=== PATIENT | male | born 1965 | race Asian ===

== ENCOUNTER 2017-08-24 20:57 | Inpatient (IN) | payer BC ==
[~2017-08-24] VITALS: Ht 170.2 cm; Wt 86.7 kg
--- NOTE | 2017-08-24 21:01 | NUR ---
EKG IN PROG
--- NOTE | 2017-08-24 21:13 | NUR ---
EKG SHOWN TO OBI VARGAS.
--- NOTE | 2017-08-24 21:22 | NUR ---
DR TEJEDA AT BEDSIDE FOR MSE. PT C/C DIZZINESS AFTER HAVING DINNER WITH FAMILY. PT REPORTS FEELING SUDDEN BLOOD DE LUNA TO HEAD. PT STATES HX OF DIZZINESS BUT TODAYS DIZZINESS FELT MORE SEVERE. PT DENIES ALOC, FALL OR CHANGES IN VISION. PT ALERT AND AWAKE, BREATHING EVEN AND UNLABORED. SIDE RAILS UP FOR SAFETY PRECAUTIONS. PT AND SON AT BEDSIDE. NO SX OF DISTRESS NOTED AT THIS TIME. CALL LIGHT PLACED WITHIN REACH. P.S. PT ON FULL CM FOR SAFETY PRECAUTIONS
--- NOTE | 2017-08-24 21:48 | NUR ---
PT MEDICATED PER DR TEJEDA ORDERS. PT EDUCATED ON MEDS AND DENIES ALLERGIES TO MED. PT IV SITE PATENT WITH NO COMPLICATIONS NOTED. PT ALERT AND AWAKE, NO DIFFICULTY SWALLOWING PO MED. AT BEDSIDE. NO SX OF DISTRESS NOTED.
--- NOTE | 2017-08-24 21:50 | NUR ---
XRAY AT BEDSIDE
[2017-08-24 22:22] LABS: BASOPHIL % 0.5 % (0-2); PLATELET COUNT 291 x10^3mcL (130-400); RED CELL DISTRIBUTION WIDTH 13.4 % (11.5-14.5)
[2017-08-24 22:27] LABS: CALCIUM 8.4 mg/dL (8.5-10.1); CARBON DIOXIDE 24.6 mmol/L (21-32); CHLORIDE SERUM 109 mmol/L (98-107); CREATININE SERUM 1.1 mg/dL (0.7-1.3); GFR1 > 60 mL/min; GLUCOSE SERUM 144 mg/dL (74-106); POTASSIUM SERUM 3.8 mmol/L (3.5-5.1); SODIUM SERUM 143 mmol/L (136-145)
[2017-08-24 22:30] LABS: ALKALINE PHOSPHATASE 65 U/L (46-116); ALT/SGPT 22 U/L (16-63); AST/SGOT 16 U/L (15-37); BILIRUBIN TOTAL 0.3 mg/dL (0.20-1.00); MAGNESIUM 1.8 mg/dL (1.8-2.4); TOTAL PROTEIN, SERUM 6.6 g/dL (6.4-8.2)
[2017-08-24 22:33] LABS: ALBUMIN 3.2 g/dL (3.4-5.0)
[2017-08-24 22:45] LABS: T3 TOTAL 1.03 ng/mL
--- NOTE | 2017-08-24 22:50 | NUR ---
PT MEDICATED PER DR TEJEDA ORDERS. PT EDUCATED ON MED AND VERBALIZED UNDERSTANDING OF TEACHING. PT IV SITE PATENT, NO SX OF COMPLICATIONS NOTED. PT AAOX4, TALKING TO AT BEDSIDE. PT DENIES PAIN AT THIS TIME.
[2017-08-24 22:52] LABS: FREE T4 0.93 ng/dL (0.76-1.46); FREE THYROXINE INDEX 1.7 ug/dL (1.4-4.5); T4(THYROXINE) 4.4 ug/dL (4.7-13.3)
[2017-08-24 23:09] LABS: AMPHETAMINE QUAL UR NONE DETECTED (NEG <=1000)
--- NOTE | 2017-08-24 23:31 | NUR ---
LUNCH BREAK REPORT GIVEN TO GIDEON BERMAN TO COVER CARE.
[2017-08-24] MEDS ORDERED: MULTIVITAMIN1 SGL PO (23:53)
--- NOTE | 2017-08-25 00:11 | NUR ---
GIDEON HOLLY CALLED AT EXT [id number], NO ANSWER WILL CALL BACK AT A LATER TIME.
[2017-08-25 00:25] LABS: CHOLESTEROL/HDL RATIO 6.7
--- NOTE | 2017-08-25 00:27 | NUR ---
ADMISSION REPORT GIVEN TO GIDEON HOLLY EXT [phone] TO CONTINUE CARE.
[2017-08-25 00:56] VITALS: BP 98/61
--- NOTE | 2017-08-25 01:00 | NUR ---
RECEIVED PT FROM ED VIA SUMAN. ORIENTED PT TO ROOM AND SURROUNDINGS. IV NOTED TO LAC PATENT AND INTACT. TELE 38 PLACED ON PT READING AFIB. INSTRUCTED PT ON THE USE OF CALL LIGHT FOR ASSISTANCE. ENDORSED PT TO PRIMARY NURSE ELAYNE
--- NOTE | 2017-08-25 01:19 | NUR ---
RECEIVED PT IN BED, NEW ADM. FROM ER. RESTING QUIETLY. ALERT AND ORIENTED. DENIES HEADACHE/DIZZINESS. DENIES NUMBNESS OR ANY TINGLING SENSATION . AFEBRILE AND VITAL SIGNS STABLE. AFIB ON THE MONITOR, HR 87, DENIES CHEST PAIN OR ANY DISCOMFORT AT THIS TIME. STARTED ON IVF, NS AT 100ML/HR, INFUSING VIA LAC , SITE CLEAR. ABD. SOFT, NON DISTENDED, BS ACTIVE, NO N/V NOTED. SKIN WARM AND DRY TO TOUCH, INTACT AND NO EDEMA NOTED. AMBULATORY. KEPT COMFORTABLE. CALL LIGHT WITHIN REACH. WILL CONTINUE TO MONITOR.
[2017-08-25 04:07] LABS: microscopic required? NO
--- NOTE | 2017-08-25 04:23 | NUR ---
SLEEPING, EASILY AROUSABLE. NO DISTRESS NOTED. WILL CONTINUE TO MINITOR.
[2017-08-25 04:28] LABS: urine erythrocyte NEGATIVE (NEGATIVE)
[2017-08-25 06:33] VITALS: BP 97/60
[2017-08-25 06:37] LABS: BASOPHIL % 0.4 % (0-2); PLATELET COUNT 271 x10^3mcL (130-400); RED CELL DISTRIBUTION WIDTH 13.4 % (11.5-14.5)
--- NOTE | 2017-08-25 06:38 | NUR ---
NO COMPLAINTS NOTED. DENIES CHEST PAIN OR ANY DISCOMFORT. AFEBRILE AND VITAL SIGNS STABLE. RESP. EVEN AND UNLABORED. NO DISTRESS NOTED. KEPT COMFORTABLE. IVF INTACT AND INFUSING WELL, SITE CLEAR. VOIDING FREELY. WILL ENDORSE TO INCOMING NURSE.
[2017-08-25 06:53] LABS: CALCIUM 8.1 mg/dL (8.5-10.1); CARBON DIOXIDE 26.3 mmol/L (21-32); CHLORIDE SERUM 110 mmol/L (98-107); CREATININE SERUM 1.1 mg/dL (0.7-1.3); GFR1 > 60 mL/min; GLUCOSE SERUM 96 mg/dL (74-106); POTASSIUM SERUM 3.9 mmol/L (3.5-5.1); SODIUM SERUM 145 mmol/L (136-145)
--- NOTE | 2017-08-25 07:50 | NUR ---
AAO TIMES 4. TELE # 38 A FIB 110. LUNGS CTA. NO SOB. O2 SAT ON RA 99%. BS'S ACTIVE TIMES 4. CAT STRONG. NO C/O PAIN. NO SOB. O2 SAT ON RA 99%. PERIPHERAL PULSES PALPABLE. NO EDEMA. SKIN CDI. COOPERATIVE. IV SITE LAC PATENT, CDI.
--- NOTE | 2017-08-25 08:40 | NUR ---
ROUNDS WITH D[place] WITH DR [place] [id number]. THE PLAN FOR TODAY IS TO GET A CARDIAC CONSULTATION.
[2017-08-25 12:57] VITALS: BP 99/65
[2017-08-25 15:58] VITALS: BP 106/72
--- NOTE | 2017-08-25 17:11 | NUR ---
PT TOLD DR ROCA HE WANTS TO GO AMA. DR ROCA HAD PT SIGN AMA FORM AT 1651 AFTER GIVING HIM THE RISKS AND BENEFITS OF LEAVING AMA. I DC'D THE SL ANGIO INTACT. PT'S PRESENT TO DRIVE HIM HONEY.
== END 2017-08-25 17:18 | disposition left against medical advice (07) | DRG 310 ==
LOC: ED 20:57 → DU 23:40
PROVIDERS: Emergency Medicine; ADMIT Student in an Organized Health Care Education/Training Program
DX: I48.91 Unspecified atrial fibrillation (principal); G90.9 Disorder of the autonomic nervous system, unspecified; E03.9 Hypothyroidism, unspecified; E78.1 Pure hyperglyceridemia; E66.3 Overweight; Z68.30 Body mass index [BMI] 30.0-30.9, adult
CPT/HCPCS: 83880; 84439; J3490; J7030; Q0092